=== PATIENT | female | born 1995 | race Caucasian/White ===

== ENCOUNTER 2020-09-21 06:07 | Day surgery (SDC) | payer BC, OTHER ==
[~2020-09-21] VITALS: Ht 152.4 cm; Wt 80.5 kg
[~2020-09-21 06:07] MED LIST: HYDROmorphone 2 MG/ML VIAL IVP PRN; IV RINGERS,LACTATED 1000ML 1,000 ML IV SCH; MORPHINE SULFATE 2 MG/ML VIAL. IVP PRN; PROCHLORPERAZINE 10 MG/2 ML VIAL. IVP PRN; fentaNYL PF VIAL 100 MCG/2 ML VIAL IVP PRN
[2020-09-21] MEDS ORDERED: ESOM20CA PO (06:44)
[2020-09-21] MEDS ORDERED: ROCURONIUM 50 MG/5 ML VIAL. ONE (07:16)
[2020-09-21] MEDS ORDERED: SURGICEL HEMOSTAT 4X8 EACH. ONE (07:17)
[2020-09-21] MEDS ORDERED: BUPIVACAINE MPF 0.5% 30 ML VIAL. ONE (07:17)
[2020-09-21] MEDS ORDERED: KETOROLAC 30 MG/ML VIAL. ONE (07:17)
[2020-09-21] MEDS ORDERED: PROPOFOL 10 MG/ML (20ML) VIAL. IV ONE (07:17)
[2020-09-21] MEDS ORDERED: IOHEXOL 300 MG/ML 50 ML VIAL. ONE (07:17)
[2020-09-21] MEDS ORDERED: DEXAMETHASONE SOD PHOS 4 MG/ML VIAL ONE (07:17)
[2020-09-21] MEDS ORDERED: LIDOCAINE 2% PF 5 ML VIAL. ONE (07:17)
[2020-09-21] MEDS ORDERED: ONDANSETRON PF 4 MG/2 ML VIAL. ONE (07:17)
[2020-09-21] MEDS ORDERED: MIDAZOLAM HCL/PF 2 MG/2 ML VIAL. ONE (07:17)
[2020-09-21] MEDS ORDERED: SEVOFLURANE 61 TO 120 MINUTES. IH ONE (07:49)
[2020-09-21] MEDS ORDERED: GLYCOPYRROLATE 1 MG/5 ML VIAL. ONE (08:06)
[2020-09-21] MEDS ORDERED: NEOSTIGMINE METHYLSULFATE 5 MG/5 ML SYRINGE. ONE (08:06)
[2020-09-21] MEDS ORDERED: DEXAMETHASONE SOD PHOS 20 MG/5 ML VIAL. ONE (08:13)
--- NOTE | 2020-09-21 08:24 | RAD ---
C-arm fluoroscopy with fluoroscopic spot views Clinical indications: Intraoperative angiogram. Abdominal pain. Cholecystectomy. Total fluoroscopic time: 0.17 minutes. Total fluoroscopic spot images: 2. IMPRESSION: Fluoroscopic spot images demonstrate opacification of the extrahepatic biliary tree with free flow of contrast from the common bile duct into the duodenum. No extrahepatic bile duct stone or stricture is seen. Electronically signed by: Keyon Villatoro MD (09/21/2020 8:22 AM) [id number]
--- NOTE | 2020-09-21 08:38 | PDOC4 ---
Operative Note Operative Note Operative Note: Preoperative Diagnosis: Biliary dyskinesia Postoperative Diagnosis: Same Procedure: Laparoscopic cholecystectomy with intraoperative cholangiogram Surgeons: Vernon Machine Heel Sprayer: Jessee CAIN Anesthesia: Gen. Estimated Blood Loss: 10 mL Specimen: Gallbladder to pathology Drains: None Complications: None Indications: The patient is a 24-year-old female who is referred with suspected biliary dyskinesia. Surgical treatment was offered by means of a laparoscopic cholecystectomy. The risks of surgery were discussed which include bleeding, infection, bile duct injury, bile leak, pain, the potential for additional surgeries or procedures. The patient understands and would like to proceed. Description: The patient was taken to the operating room and laid supine on the operating table. General anesthesia was performed. The abdomen was prepped with ChloraPrep and draped in a standard surgical fashion. A small in fraumbilical incision was made with a scalpel. The Veress needle was then inserted and a pneumoperitoneum was then created. A 5 mm trocar was then inserted and the laparoscope was introduced. In the upper midabdomen a 5 mm trocar was inserted and in the right upper quadrant two 2.3 mm mini lap graspers were inserted. The gallbladder was retracted cephalad. The cystic duct was dissected free from surrounding tissues. One clip was placed on the duct near the gallbladder junction. An opening was made in the duct and a cholangiocatheter placed within and secured with a clip. Using contrast dye and fluoroscopy an intraoperative cholangiogram was performed that appeared unremarkable. The clip and catheter were then withdrawn. Three clips were placed on the cystic duct and it was divided. The cystic artery was then identified, dissected free, doubly clipped and divided as well. The gallbladder was then mobilized away from the liver with cautery. The umbilical 5 millimeter trocar was exchanged for an 11 millimeter trocar. The gallbladder was then placed in an endoscopic bag and extracted at the umbilical trocar site. The fascia there was closed with an 0 Vicryl suture and infiltrated with 0.5% marcaine. All blood and irrigation fluid was suctioned and hemostasis was good. The remaining ports were removed and the pneumoperitoneum was relieved. The skin incisions were closed using 4-0 Monocryl suture. Steri-Strips and dressings were then applied. The patient tolerated the procedure well and was sent to the recovery room in stable condition. At the end of the case all counts were correct. FORTUNATO SHORT MD Sep 21, 2020 08:38
[2020-09-21] MEDS ORDERED: fentaNYL PF VIAL 100 MCG/2 ML VIAL ONE (08:40)
--- NOTE | 2020-09-21 08:41 | DISCH ---
DISCHARGE INSTRUCTIONS Condition on Discharge Condition on Discharge: Stable Activity After Discharge Activity Instructions for Disc: Other, see below (No lifting over 20 lbs/st renuous activity X 2 weeks) Driving Instructions after Dis: Other, see below (No driving while taking pain meds) Diet after Discharge Diet after Discharge: Regular Follow-Up Follow up with: Dr Short in office in 2 weeks, call for appointment [phone] FORTUNATO SHORT MD Sep 21, 2020 08:41
[2020-09-21] MEDS ORDERED: oxyCODONE/APAP 5/325 1 TAB TABLET PO ONE ×4 (08:45→09:00)
[2020-09-21] MEDS: fentaNYL PF VIAL 100 MCG/2 ML VIAL IVP PRN ×2 (08:45→08:59)
[2020-09-21] MEDS ORDERED: OXYC1TAB15 PO (08:53)
[2020-09-21 09:15] VITALS: BP 113/31
--- NOTE | 2020-09-22 14:17 | PATHOLOGY ---
[facility] Accession Number: [id number] . 01 Material submitted: . gallbladder - GALLBLADDER AND CONTENTS . 01 Clinical history: . BILIARY DYSKINESIA CHOLECYSTECTOMY . 02 Diagnosis: Gallbladder, cholecystectomy: - Chronic cholecystitis. . ([facility]:mm; 09/22/2020) [facility] 09/22/2020 1315 Local . 02 Comment: There are no calculi identified within the gallbladder lumen or specimen container. There is no evidence of malignancy. ([facility]:mm; 09/22/2020) . 02 Electronically signed: . Rob Ramirez MD, Pathologist NPI- [id number] . 01 Gross description: . The specimen is received in formalin, labeled "Brooklyn Hogan gallbladder and contents" and consists of a 7 x 3 x 2.2 cm soft caban green gallbladder with cystic duct luminal diameter of 0.2 cm. The cystic duct margin is inked black. On opening, no stones are identified. Green viscous bile is noted. The mucosa is velvety. The wall measures up to 0.2 cm. Paper Wrapping Machine Operator sections are submitted in 1 cassette A1.([facility]; 09/21/2020) [facility] 09/21/2020 2152 Local . 02 Pathologist provided ICD-10: K81.1 . 02 CPT . 244427 Specimen Comment: A courtesy copy of this report has been sent to [phone], [phone] Specimen Comment: [id number] Specimen Comment: Report sent to / DR CAGLE Performed at: [address], [place], [place] [id number] MD Linwood Soriano MD Phone: [phone] Performed at: 02 [facility] [address] [place], [place] [id number] MD Rob Ramirez MD Phone: [phone]
== END 2020-09-21 09:44 | disposition home or self-care (01) ==
LOC: SURG 06:07
PROVIDERS: ATTEND Surgery
DX: K81.1 Chronic cholecystitis (principal); K82.8 Other specified diseases of gallbladder; F41.9 Anxiety disorder, unspecified; F32.9 Major depressive disorder, single episode, unspecified; Z87.891 Personal history of nicotine dependence; Z79.899 Other long term (current) drug therapy; Z98.890 Other specified postprocedural states; Z72.89 Other problems related to lifestyle
CPT/HCPCS: 47563; 74300; 81025; A4213; A4314; A4364; A4930; A6219; C1887; J0690; J1100; J1885; J2250; J2405; J2704; J2710; J3010; J3490; Q9967; 88304; A4452; A4657